=== PATIENT | female | born 1955 | race African-American/Black ===

== ENCOUNTER 2016-11-30 09:33 | Emergency (ER) | payer OTHER ==
[2016-11-30 09:43] VITALS: BP 155/75; PULSE 67; TEMP 98.5; BMI 40.3
[2016-11-30] MEDS ORDERED: KETOROLAC TROMETHAMINE 60 MG/2 ML VIAL IM ONE (11:11)
[2016-11-30] MEDS ORDERED: KETOROLAC TROMETHAMINE 60 MG/2 ML VIAL ONE (11:13)
--- NOTE | 2016-11-30 11:23 | PDOC ---
History of Present Illness - General Chief Complaint: Ear Problem Stated Complaint: EAR PAIN Time Seen by Provider: 11/30/16 10:51 History Source: Patient Exam Limitations: No Limitations - History of Present Illness Initial Comments: 11/30/16 11:56 pateint complaints of severe right sided facial pain, states has suffered from TMJ tenderness but states has had a flare the past few days that has been prohibiting her from eating. Denies fever, changes in exercise habits. Wears dentures and does not wear them at night. Denies ever knowledge of teeth grinding but has worn dentures for many years. Has never sought any medical attention for this syndrome. Complaining of runny nose,, itchy eyes and ALLERGY which is causing her congestion and causing her right-sided facial/ear pain to worsen. Timing/Duration: unsure, 1 week, getting worse Severity: mild Associated Symptoms: reports: denies symptoms Past History - Travel Traveled outside of the country in the last 30 days: No Close contact w/someone who was outside of country & ill: No - Past Medical History Allergies/Adverse Reactions: Allergies Allergy/AdvReac Type Severity Reaction Status Date / Time No Known Allergies Allergy Verified 11/30/16 09:43 Home Medications: Ambulatory Orders Hydrochlorothiazide 25 mg PO ASDIR 11/30/16 Metformin HCl 500 mg PO DAILY 11/30/16 Naproxen [Naprosyn -] 500 mg PO BID #14 tablet 11/30/16 Nitrofurantoin Macrocrystal [Nitrofurantoin] 100 mg PO 11/30/16 Diabetes: Yes HTN: Yes Hypercholesterolemia: Yes - Psycho/Social/Smoking Cessation Hx Suicidal Ideation: No Smoking History: Never smoked Information on smoking cessation initiated: No Hx Alcohol Use: No Drug/Substance Use Hx: No Substance Use Type: None Review of Systems - Review of Systems Able to Perform ROS?: Yes Is the patient limited Maltese proficient: Yes Constitutional: Yes: See HPI. No: Symptoms Reported, Fever, Malaise HEENTM: Yes: See HPI. No: Symptoms Reported Respiratory: Yes: See HPI. No: Symptoms reported, Cough Musculoskeletal: No: Symptoms Reported Integumentary: Yes: See HPI. No: Symptoms Reported, Rash Neurological: Yes: See HPI. No: Symptoms reported All Other Systems: Reviewed and Negative *Physical Exam - Vital Signs Last Vital Signs Temp Pulse Resp BP Pulse Ox 98.5 F 67 17 155/75 98 11/30/16 09:40 11/30/16 09:40 11/30/16 09:40 11/30/16 09:40 11/30/16 09:40 - Physical Exam General Appearance: Yes: Nourished, Appropriately Dressed HEENT: positive: SHERRILL, Normal ENT Inspection, TMs Normal, Pharynx Normal, Rhinorrhea (clear), Other (swollen right TMJ with some crepitus. Unable to open past 50%). negative: EOMI Neck: positive: Supple. negative: Tender, Lymphadenopathy (R), Lymphadenopathy (L) Respiratory/Chest: positive: Lungs Clear, Normal Breath Sounds Extremity: positive: Normal Capillary Refill Integumentary: positive: Dry, Warm Neurologic: positive: [employer] (ex ) II-XII NML intact, Fully Oriented, Alert, Normal Mood/ Affect, Normal Response, Motor Strength 5/5 *DC/Admit/Observation/Transfer Diagnosis at time of Disposition: TMJ arthralgia Qualifiers: Laterality: right Qualified Code(s): M26.621 - Arthralgia of right temporomandibular joint Allergic rhinitis Qualifiers: Allergic rhinitis trigger: unspecified Allergic rhinitis seasonality: seasonal Qualified Code(s): J30.2 - Other seasonal allergic rhinitis - Discharge Dispostion Disposition: HOME Condition at time of disposition: Stable Admit: No - Prescriptions Prescriptions: Naproxen [Naprosyn -] 500 mg PO BID #14 tablet - Referrals Referrals: Teodoro Bowie MD [Primary Care Provider] - - Patient Instructions Printed Discharge Instructions: DI for Allergic Rhinitis, DI for Temporomandibular Disorder Additional Instructions: Rest, drink lots of fluids: Teas, water, soups Saltwater gargles/ keep mouth clean and rinse after each meal May use wet teabag for pain relief to area Avoid hard chewing foods, stick to ice cream, Jell-O, yogurt etc. Tylenol or Motrin for fever and pain Complete all medication as prescribed Seek dental appointment as soon as possible for evaluation of dental injury/pain Followup with private physician in one to 2 days as needed Return to emergency department for worsened symptoms, fevers, swelling to face or worsened pain Rest, drink lots of fluids: Teas, water, soups Saltwater gargles. Consider humidifier in room at night Steamy showers/seem to face break up mucus Avoid contact with allergens, exposure to pollens, close windows on a windy day Lots of handwashing and good hygiene Continue [id number] medications for symptomatic relief- may use allergic eyedrops for itching I Continue antihistamines daily until pollen season is over; Zyrtec, Claritin, Radha during the daytime and Benadryl at nighttime as will make sleepy Tylenol or Motrin for fever and pain Followup with private physician in one to 2 days as needed Consider following up with an health assistant/commission associate for skin testing and possible allergy shots Return to emergency department for worsened symptoms, fevers, dehydration - Post Discharge Activity Work/School Note: Back to Work
== END 2016-11-30 12:22 | disposition home or self-care (01) ==
LOC: JERFT 09:33
PROC: 3E0233Z Introduction of Anti-inflammatory into Muscle, Percutaneous Approach (ICD-10-PCS; principal; 2016-11-30)
DX: M26.621 Arthralgia of right temporomandibular joint (principal); J30.2 Other seasonal allergic rhinitis; I10 Essential (primary) hypertension; E78.00 Pure hypercholesterolemia, unspecified; Z79.84 Long term (current) use of oral hypoglycemic drugs
CPT/HCPCS: 99281-25